=== PATIENT | male | born 1980 | race Two or more races ===

== ENCOUNTER 2017-05-14 12:19 | Emergency (ER) | payer OTHER ==
[~2017-05-14] VITALS: Ht 177.8 cm; Wt 110.0 kg
[2017-05-14 12:23] VITALS: BP 133/83
== END 2017-05-14 13:01 | disposition home or self-care (01) ==
LOC: ED 12:55
DX: T63.301A Toxic effect of unspecified spider venom, accidental (unintentional), initial encounter (principal); L03.311 Cellulitis of abdominal wall; Y93.89 Activity, other specified; Y99.8 Other external cause status; Y92.89 Other specified places as the place of occurrence of the external cause
CPT/HCPCS: 99283